=== PATIENT | female | born 1970 | race Caucasian/White ===

== ENCOUNTER 2019-01-23 21:15 | Emergency (ER) | payer SELFPAY ==
[~2019-01-23] VITALS: Ht 152.4 cm; Wt 59.0 kg
[2019-01-23 21:18] VITALS: BP 141/82
--- NOTE | 2019-01-23 21:25 | NUR ---
TO LOBBY A/W BED AMBULATORY
--- NOTE | 2019-01-23 22:36 | NUR ---
PT TAKEN TO BED 6
--- NOTE | 2019-01-23 22:48 | NUR ---
PT PRESENTS TO THE ED WITH C/O CHEST PAIN, HEADACHE, ABD PAIN AND NAUSEA X2 DAYS. PATIENT REPORTS HAVING ONE EPISODE OF DIARRHEA PRIOR TO COMING TO ER. PATIENT AOX4, VSS WITHIN NORMAL LIMITS AT THIS TIME. HX OF DM. BLOOD SUGAR 378. BED LOWERED WITH SIDE RAILS UP.
--- NOTE | 2019-01-23 22:54 | NUR ---
Dr. Orozco examining patient.
[2019-01-23] MEDS ORDERED: KETOROLAC 30 MG/ML VIAL IVP ONE (23:10)
[2019-01-23] MEDS ORDERED: ONDANSETRON 4 MG/2 ML VIAL IVP ONE (23:10)
[2019-01-23] MEDS ORDERED: NACL 0.9% 1,000 ML IV ONE (23:10)
[2019-01-23 23:30] LABS: BASOPHILS % (AUTO) 0.1 % (0.0-2.0); EOSINOPHILS # (AUTO) 0.1 K/uL (0-0.4); EOSINOPHILS % (AUTO) 0.6 % (0.0-4.0); HEMATOCRIT 44.7 % (36-48); LYMPHOCYTES # (AUTO) 0.8 K/uL (2.5-16.5); MEAN CORPUSCULAR HEMOGLOBIN 30 pg (27-31); MEAN CORPUSCULAR HGB CONC 34 g/dL (33-37); MEAN CORPUSCULAR VOLUME 88.1 fL (80-94); MONOCYTES # (AUTO) 0.4 K/uL (0.8-1.0); MONOCYTES % (AUTO) 3.2 % (1.7-9.3); NEUTROPHILS # (AUTO) 10.4 K/uL (1.8-7.7); NEUTROPHILS % (AUTO) 89.2 % (42.2-75.2); PLATELET COUNT (AUTO) 216 K/uL (140-450); RED BLOOD CELL COUNT(AUTO) 5.07 MIL/uL (4.20-5.40); RED CELL DISTRIBUTION WIDTH 13.8 % (11.6-13.7); WHITE BLOOD COUNT (AUTO) 11.7 K/uL (4.8-10.8)
[2019-01-23 23:32] LABS: APPEARANCE,URINE CLEAR (CLEAR); BILIRUBIN,URINE NEGATIVE (NEGATIVE); BLOOD, URINE NEGATIVE (NEGATIVE); COLOR,URINE YELLOW (YELLOW); LEUKOCYTE ESTERASE ,URINE NEGATIVE (NEGATIVE); NITRITE, URINE NEGATIVE (NEGATIVE); UGLUCOSE 3+ (NEGATIVE)
[2019-01-23 23:37] LABS: LYMPHOCYTES % (AUTO) 6.9 % (20.5-51.1)
[2019-01-23 23:39] LABS: ANION GAP 17.5 (8-16); CREATININE 0.6 mg/dL (0.6-1.3); POTASSIUM 3.5 mmol/L (3.5-5.1)
[2019-01-23 23:44] LABS: RBC,URINE 0-5 /HPF (0-5); WBC,URINE 0-5 /HPF (0-5)
[2019-01-23 23:45] LABS: ALBUMIN 3.9 g/dL (3.4-5.0); TOTAL BILIRUBIN 0.6 mg/dL (0.0-1.0)
[2019-01-24] MEDS ORDERED: MORPHINE SULFATE 4 MG/ML SYR IVP ONE (00:45)
--- NOTE | 2019-01-24 01:10 | NUR ---
PT TAKEN TO CT
--- NOTE | 2019-01-24 01:19 | NUR ---
PT RETURN FROM CT
[2019-01-24] MEDS ORDERED: ONDANSETRON 4 MG/2 ML VIAL IVP ONE (02:10)
--- NOTE | 2019-01-24 02:15 | NUR ---
MADE DR MOHAN AWARE OF PATIENT'S BLOOD SUGAR
[2019-01-24 04:24] VITALS: BP 130/74
--- NOTE | 2019-01-24 04:25 | NUR ---
Patient discharged with v/s stable. Written and verbal after care instructions given and explained. Patient alert, oriented and verbalized understanding of instructions. Ambulatory with steady gait. All questions addressed prior to discharge. ID band removed. Patient advised to follow up with PMD. Rx of ZOFRAN, FLAGYL, BENTYL given. Patient educated on indication of medication including possible reaction and side effects. Opportunity to ask questions provided and answered.
== END 2019-01-24 04:25 | disposition home or self-care (01) ==
LOC: MED 21:15
DX: R11.10 Vomiting, unspecified (principal); R19.7 Diarrhea, unspecified; R10.84 Generalized abdominal pain; R51 Headache; E11.9 Type 2 diabetes mellitus without complications
CPT/HCPCS: 36415; 74176; 80053; 81001; 81025; 82948; 83605; 83690; 85025; 87040; 87086; 93005; 96361; 96374; 96375; 99284; J1885; J2270; J2405; J7030

== ENCOUNTER 2019-02-21 06:52 | Emergency (ER) | payer SELFPAY ==
[~2019-02-21] VITALS: Ht 144.8 cm; Wt 56.7 kg
[2019-02-21 06:55] VITALS: BP 135/75
--- NOTE | 2019-02-21 06:55 | NUR ---
to bed # `11 ambulatory
--- NOTE | 2019-02-21 07:09 | NUR ---
DR. FOREMAN BEDSIDE EVALUATING PT
[2019-02-21] MEDS ORDERED: MORPHINE SULFATE 4 MG/ML SYR IVP ONE (07:20)
--- NOTE | 2019-02-21 07:20 | NUR ---
BIB DAUGHTER. AAO X4 C/O TOOTHACHE TO RIGHT UPPER TOOTH, SWELLING NOTED TO RIGHT SIDE OF FACE, GUM PAIN, BLURRED VISION. PERRLA BRISK 3MM, FULL CLEAR SPEECH. PT DENIES HASN'T SEEN THE DENTIST YET. STEADY GAIT. ER TO EVALUATE PT.
[2019-02-21] MEDS ORDERED: NACL 0.9% 500 ML IV ONE ×3 (07:25→08:20)
[2019-02-21 07:43] LABS: BASOPHILS % (AUTO) 0.6 % (0.0-2.0); EOSINOPHILS % (AUTO) 0.6 % (0.0-4.0); HEMATOCRIT 42.9 % (36-48); HEMOGLOBIN 14.5 g/dL (12.0-16.0); LYMPHOCYTES # (AUTO) 1.7 K/uL (2.5-16.5); LYMPHOCYTES % (AUTO) 26.1 % (20.5-51.1); MEAN CORPUSCULAR HEMOGLOBIN 30 pg (27-31); MEAN CORPUSCULAR HGB CONC 34 g/dL (33-37); MEAN CORPUSCULAR VOLUME 87.7 fL (80-94); MONOCYTES # (AUTO) 0.4 K/uL (0.8-1.0); MONOCYTES % (AUTO) 6.6 % (1.7-9.3); NEUTROPHILS # (AUTO) 4.4 K/uL (1.8-7.7); NEUTROPHILS % (AUTO) 66.1 % (42.2-75.2); PLATELET COUNT (AUTO) 212 K/uL (140-450); RED BLOOD CELL COUNT(AUTO) 4.89 MIL/uL (4.20-5.40); RED CELL DISTRIBUTION WIDTH 13.1 % (11.6-13.7); WHITE BLOOD COUNT (AUTO) 6.6 K/uL (4.8-10.8)
--- NOTE | 2019-02-21 08:15 | NUR ---
IV INFILTRATION TO RAC NOTED. IV TAKEN OUT. INITIATED IV TO LAC, PT TOLERATED WELL.
[2019-02-21 08:18] LABS: ANION GAP 18.5 (8-16); CARBON DIOXIDE 23.2 mmol/L (21-32); CREATININE 0.6 mg/dL (0.6-1.3); POTASSIUM 3.7 mmol/L (3.5-5.1)
[2019-02-21 08:23] LABS: ALBUMIN 3.8 g/dL (3.4-5.0); TOTAL BILIRUBIN 0.5 mg/dL (0.0-1.0)
--- NOTE | 2019-02-21 08:33 | NUR ---
IV INFILTRATION TO LAC. IV TAKEN OUT. IV 20 G INITIATED TO LEFT FOREARM, INTACT AND PATENT. PT TOLERATED WELL.
--- NOTE | 2019-02-21 08:44 | NUR ---
PT TAKEN TO CT VIA BED BY [employer]OD[employer] MANAGER
--- NOTE | 2019-02-21 08:45 | NUR ---
PT TAKEN TO CT VIA ER BED
--- NOTE | 2019-02-21 08:58 | NUR ---
PT RETURNED FROM CT VIA ER BED
[2019-02-21] MEDS ORDERED: KETOROLAC 15 MG/ML VIAL IVP ONE (09:30)
--- NOTE | 2019-02-21 10:00 | NUR ---
PT AAO X4, FULL CLEAR SPEECH. CONVERSATING WITH DAUGHTER APPROPRIATELY. NO SIGNS AND SYMPTOMS OF DISTRESS NOTED. VSS.
[2019-02-21] MEDS ORDERED: PENICILLIN V POTASSIUM 250 MG TAB PO ONE (10:10)
[2019-02-21] MEDS ORDERED: CLINDAMYCIN 150 MG CAP PO ONE (10:10)
[2019-02-21 10:43] VITALS: BP 142/79
--- NOTE | 2019-02-21 10:43 | NUR ---
Patient discharged with v/s stable. Written and verbal after care instructions given and explained. Patient alert, oriented and verbalized understanding of instructions. Ambulatory with steady gait. All questions addressed prior to discharge. ID band removed. Patient advised to follow up with PMD. Rx of CLINDAMYCIN HYDROCHLORIDE, PENICILLIN VK given. Patient educated on indication of medication including possible reaction and side effects. Opportunity to ask questions provided and answered.
== END 2019-02-21 10:43 | disposition home or self-care (01) ==
LOC: MED 06:52
DX: L03.211 Cellulitis of face (principal); K02.9 Dental caries, unspecified; E11.9 Type 2 diabetes mellitus without complications
CPT/HCPCS: 36415; 70491; 80053; 81025; 82948; 85025; 85651; 86140; 87040; 96374; 96375; 99284; J1885; J2270; J7030; Q9967

== ENCOUNTER 2019-02-27 21:48 | Emergency (ER) | payer SELFPAY ==
[~2019-02-27] VITALS: Ht 144.8 cm; Wt 56.7 kg
[2019-02-27 22:08] VITALS: BP 131/93
--- NOTE | 2019-02-27 22:19 | NUR ---
PT AMBULATED TO BED 11
[2019-02-27 22:25] VITALS: BP 131/93
--- NOTE | 2019-02-27 22:25 | NUR ---
PT CAME TO ER C/O OF THROAT PAIN X3 HOURS. PAIN LEVEL 9/10 AND RADIATES TO STOMACH. NO N/V/D. MED HX: DM. SAFETY MEASURES IN PLACE. WAITING FOR ERMD TO EVALUATE PT.
[2019-02-27] MEDS ORDERED: KETOROLAC 30 MG/ML VIAL IM ONE (22:50)
[2019-02-27] MEDS ORDERED: DICYCLOMINE HCL LIQUID 10 MG/5 ML UDC PO ONE (22:50)
[2019-02-27] MEDS ORDERED: LIDOCAINE VISCOUS 2% 20 ML UDC PO ONE (22:50)
[2019-02-27] MEDS ORDERED: ALUMINUM HYD/MAG/SIMETHICONE 30 ML UDC PO ONE (22:50)
--- NOTE | 2019-02-27 23:22 | NUR ---
PT AMBULATED TO BATHROOM
[2019-02-27] MEDS ORDERED: NACL 0.9% 500 ML IV ONE (23:31)
[2019-02-28 00:07] LABS: BASOPHILS % (AUTO) 0.8 % (0.0-2.0); EOSINOPHILS # (AUTO) 0.1 K/uL (0-0.4); EOSINOPHILS % (AUTO) 0.8 % (0.0-4.0); LYMPHOCYTES # (AUTO) 2.6 K/uL (2.5-16.5); LYMPHOCYTES % (AUTO) 42.5 % (20.5-51.1); MEAN CORPUSCULAR HEMOGLOBIN 29 pg (27-31); MEAN CORPUSCULAR HGB CONC 33 g/dL (33-37); MEAN CORPUSCULAR VOLUME 88.2 fL (80-94); MONOCYTES # (AUTO) 0.4 K/uL (0.8-1.0); MONOCYTES % (AUTO) 6.8 % (1.7-9.3); NEUTROPHILS # (AUTO) 2.9 K/uL (1.8-7.7); NEUTROPHILS % (AUTO) 49.1 % (42.2-75.2); PLATELET COUNT (AUTO) 249 K/uL (140-450); RED BLOOD CELL COUNT(AUTO) 4.41 MIL/uL (4.20-5.40); RED CELL DISTRIBUTION WIDTH 13.3 % (11.6-13.7)
[2019-02-28 00:24] LABS: ALBUMIN 3.6 g/dL (3.4-5.0); ANION GAP 13.4 (8-16); CARBON DIOXIDE 24.6 mmol/L (21-32); CREATININE 0.6 mg/dL (0.6-1.3); TOTAL BILIRUBIN 0.4 mg/dL (0.0-1.0)
[2019-02-28] MEDS ORDERED: NACL 0.9% 1,000 ML IV ONE (00:50)
[2019-02-28] MEDS ORDERED: INSULIN REGULAR, HUMAN 100 UNIT/ML VIAL IVP ONE (00:50)
--- NOTE | 2019-02-28 01:10 | NUR ---
PT RESTING IN BED, TALKING TO DAUGHTER. VSS. WILL CONTINUE TO MONITOR.
--- NOTE | 2019-02-28 01:48 | NUR ---
Patient discharged with v/s stable. Written and verbal after care instructions given and explained. Patient alert, oriented and verbalized understanding of instructions. Ambulatory with steady gait. All questions addressed prior to discharge. ID band removed. Patient advised to follow up with PMD. Rx of tramadol and omeperazole given. Patient educated on indication of medication including possible reaction and side effects. Opportunity to ask questions provided and answered.
== END 2019-02-28 01:48 | disposition home or self-care (01) ==
LOC: MED 21:48
DX: K29.70 Gastritis, unspecified, without bleeding (principal); E11.65 Type 2 diabetes mellitus with hyperglycemia
CPT/HCPCS: 36415; 71045; 76705; 80053; 81025; 82948; 83690; 84484; 85025; 96361; 96372; 96374; 99284; J1815; J1885; J7030; Q0092

== ENCOUNTER 2019-04-03 12:16 | Emergency (ER) | payer MEDICAID ==
[~2019-04-03] VITALS: Ht 144.8 cm; Wt 55.3 kg
[2019-04-03 12:25] VITALS: BP 134/74
[2019-04-03] MEDS ORDERED: METF850T PO (12:31)
--- NOTE | 2019-04-03 12:37 | NUR ---
Patient ambulated to bed 6 with family. RN evaluating patient at bedside.
--- NOTE | 2019-04-03 12:38 | NUR ---
Dalila mary in [facility] - 04/03/19 at 1238 by [facility] Pt taken to bed 6.
[2019-04-03] MEDS ORDERED: SODIUM CHLORIDE FLUSH 10 ML SYR IVF STA (12:44)
--- NOTE | 2019-04-03 12:45 | NUR ---
PT PRESENTS TO ED WITH C/O CHILLS AND FEVER SINCE LAST NIGHT. REPORTS NAUSEA, DIARRHEA AND LOWER BACK PAIN;+DYSURIA, +URINARY FREQUENCY, +PAINFUL/BURNING SENSATION WHEN URINATING.
[2019-04-03 13:31] LABS: BASOPHILS % (AUTO) 0.3 % (0.0-2.0); EOSINOPHILS % (AUTO) 0.1 % (0.0-4.0); HEMOGLOBIN 14.6 g/dL (12.0-16.0); LYMPHOCYTES # (AUTO) 1.1 K/uL (2.5-16.5); LYMPHOCYTES % (AUTO) 13.9 % (20.5-51.1); MEAN CORPUSCULAR HEMOGLOBIN 29 pg (27-31); MEAN CORPUSCULAR HGB CONC 33 g/dL (33-37); MEAN CORPUSCULAR VOLUME 88.2 fL (80-94); MONOCYTES # (AUTO) 0.6 K/uL (0.8-1.0); MONOCYTES % (AUTO) 7.9 % (1.7-9.3); NEUTROPHILS # (AUTO) 5.9 K/uL (1.8-7.7); NEUTROPHILS % (AUTO) 77.8 % (42.2-75.2); PLATELET COUNT (AUTO) 189 K/uL (140-450); RED BLOOD CELL COUNT(AUTO) 4.99 MIL/uL (4.20-5.40); RED CELL DISTRIBUTION WIDTH 13.5 % (11.6-13.7); WHITE BLOOD COUNT (AUTO) 7.6 K/uL (4.8-10.8)
[2019-04-03 13:42] LABS: ANION GAP 19.6 (8-16); CARBON DIOXIDE 20.3 mmol/L (21-32); CREATININE 0.6 mg/dL (0.6-1.3); POTASSIUM 3.9 mmol/L (3.5-5.1)
[2019-04-03 13:53] LABS: ALBUMIN 3.9 g/dL (3.4-5.0); TOTAL BILIRUBIN 0.5 mg/dL (0.0-1.0)
[2019-04-03] MEDS ORDERED: ONDANSETRON 4 MG/2 ML VIAL IVP ONE (14:10)
[2019-04-03] MEDS ORDERED: PANTOPRAZOLE 40 MG INJ VIAL IVP ONE (14:10)
[2019-04-03] MEDS ORDERED: NACL 0.9% 1,000 ML IV ONE (14:10)
--- NOTE | 2019-04-03 15:36 | NUR ---
pt verbalized a decreased in pain and feeling a better overall. Reports pain 3/10 at this time.
--- NOTE | 2019-04-03 16:06 | NUR ---
Leslie Monroe made aware of patient's temperature 103.2 prior to discharge. Pt will receive medications in ED prior to discharge.
[2019-04-03] MEDS ORDERED: ACETAMINOPHEN EXTRA STRENGTH 500 MG TAB PO ONE (16:25)
--- NOTE | 2019-04-03 17:10 | NUR ---
CURRENT TEMP 102.6. PER HORACIO PALAFOX TO D/C.
--- NOTE | 2019-04-03 17:15 | NUR ---
IV removed, catheter intact and site benign. Applied folded 4x4 gauze and tape to stop bleeding.
[2019-04-03 17:18] VITALS: BP 118/61
== END 2019-04-03 17:18 | disposition home or self-care (01) ==
LOC: MED 12:16
DX: A08.4 Viral intestinal infection, unspecified (principal); E11.9 Type 2 diabetes mellitus without complications; E05.90 Thyrotoxicosis, unspecified without thyrotoxic crisis or storm; Z98.890 Other specified postprocedural states; Z79.84 Long term (current) use of oral hypoglycemic drugs
CPT/HCPCS: 36415; 80053; 81002; 81025; 82948; 85025; 96361; 96374; 96375; 99283; C9113; J2405; J7030

== ENCOUNTER 2020-04-11 18:41 | Emergency (ER) | payer MEDICAID ==
[~2020-04-11] VITALS: Ht 144.8 cm; Wt 53.5 kg
[~2020-04-11 18:41] MED LIST: METF850T PO
[2020-04-11 18:46] VITALS: BP 161/94
--- NOTE | 2020-04-11 18:56 | NUR ---
49 Y/O FEMALE C/O CHEST PAIN/EPIGASTRIC PAIN/BACK PAIN RADIATING TO BACK THAT BEGAN ONE MONTH AGO. PT HAVING DIARRHEA FOR THE LAST 2 DAYS. PAIN IS 10/10, BURNING AND SHARP IN CHARACTER. PT HAS BEEN TO [facility] THIS MONTH AND WAS DX WITH GERD, BUT MEDICATIONS DID NOT HELP. PT STATES PAIN IS WORSE ON LEFT SIDE. DENIES ANY SOB/RESP EVEN AND UNLABORED. DENIES ANY COUGH/FEVER PMH: DM, HTN NKA
[2020-04-11] MEDS ORDERED: NACL 0.9% 1,000 ML IV ONE (19:10)
[2020-04-11] MEDS ORDERED: ALUMINUM HYD/MAG/SIMETHICONE 30 ML UDC PO ONE (19:10)
[2020-04-11] MEDS ORDERED: PANTOPRAZOLE 40 MG INJ VIAL IVP ONE (19:10)
[2020-04-11] MEDS ORDERED: LIDOCAINE VISCOUS 2% 20 ML UDC PO ONE (19:10)
[2020-04-11] MEDS ORDERED: DICYCLOMINE HCL LIQUID 10 MG/5 ML UDC PO ONE (19:10)
[2020-04-11] MEDS ORDERED: KETOROLAC 30 MG/ML VIAL IVP ONE (19:10)
--- NOTE | 2020-04-11 19:35 | NUR ---
US at bedside.
[2020-04-11 19:41] LABS: BASOPHILS % (AUTO) 0.6 % (0.0-2.0); EOSINOPHILS % (AUTO) 0.8 % (0.0-4.0); HEMATOCRIT 38.3 % (36-48); HEMOGLOBIN 12.7 g/dL (12.0-16.0); LYMPHOCYTES # (AUTO) 1.9 K/uL (2.5-16.5); LYMPHOCYTES % (AUTO) 34.9 % (20.5-51.1); MEAN CORPUSCULAR HEMOGLOBIN 29 pg (27-31); MEAN CORPUSCULAR HGB CONC 33 g/dL (33-37); MEAN CORPUSCULAR VOLUME 88.1 fL (80-94); MONOCYTES # (AUTO) 0.5 K/uL (0.8-1.0); MONOCYTES % (AUTO) 9.7 % (1.7-9.3); PLATELET COUNT (AUTO) 209 K/uL (140-450); RED BLOOD CELL COUNT(AUTO) 4.34 MIL/uL (4.20-5.40); RED CELL DISTRIBUTION WIDTH 13.4 % (11.6-13.7); WHITE BLOOD COUNT (AUTO) 5.5 K/uL (4.8-10.8)
[2020-04-11 20:00] LABS: ALBUMIN 3.6 g/dL (3.4-5.0); ANION GAP 14.4 (8-16); CARBON DIOXIDE 25.7 mmol/L (21-32); CREATININE 0.7 mg/dL (0.6-1.3); POTASSIUM 4.1 mmol/L (3.5-5.1); TOTAL BILIRUBIN 0.3 mg/dL (0.0-1.0)
[2020-04-11] MEDS ORDERED: INSULIN REGULAR, HUMAN 100 UNIT/ML VIAL IVP ONE (20:05)
--- NOTE | 2020-04-11 20:26 | NUR ---
ACCUCHECK--291 PT ADMINISTERED 6 UNITS OF HUMULIN R PER ERMD ORDER.
--- NOTE | 2020-04-11 20:39 | NUR ---
PT RESTING QUIETLY IN BED. R/R EQUAL, AND UNLABORED. VSS. DAUGHTER IS AT BED SIDE. SIDE RAIL X1, BED IN LOW POSIITON, WILL CONTINUE TO MONITOR.
--- NOTE | 2020-04-11 21:43 | NUR ---
ACCUCHECK RECHECKED BG 244. ERMD MADE AWARE. WILL CONTINUE TO MONITOR.
[2020-04-11 22:11] VITALS: BP 161/94
--- NOTE | 2020-04-11 22:11 | NUR ---
Patient discharged with v/s stable. Written and verbal after care instructions given and explained. Patient alert, oriented and verbalized understanding of instructions. Ambulatory with steady gait. All questions addressed prior to discharge. ID band removed. Patient advised to follow up with PMD. Rx of PROTONIX, CARAFATE given. Patient educated on indication of medication including possible reaction and side effects. Opportunity to ask questions provided and answered.
== END 2020-04-11 22:11 | disposition home or self-care (01) ==
LOC: MED 18:41
DX: K29.70 Gastritis, unspecified, without bleeding (principal); E11.9 Type 2 diabetes mellitus without complications; I10 Essential (primary) hypertension; E05.90 Thyrotoxicosis, unspecified without thyrotoxic crisis or storm; F03.90 Unspecified dementia, unspecified severity, without behavioral disturbance, psychotic disturbance, mood disturbance, and anxiety; Z79.84 Long term (current) use of oral hypoglycemic drugs; Z98.890 Other specified postprocedural states
CPT/HCPCS: 36415; 71045; 76705; 80053; 83690; 84484; 85025; 93005; 96361; 96374; 96375; 99285; C9113; J1815; J1885; J7030; Q0092

== ENCOUNTER 2020-06-27 17:05 | Emergency (ER) | payer MEDICAID ==
[~2020-06-27] VITALS: Ht 147.3 cm; Wt 68.0 kg
[2020-06-27 17:19] VITALS: BP 167/89
--- NOTE | 2020-06-27 17:19 | NUR ---
PATIENT PRESENTS TO ED WITH C/O RIGHT UPPER QUADRANT PAIN, RADIATING TO RIGHT BACK X 4 DAYS . PT STATES HAS BEEN TAKING TRAMADOL FROM [place] . DENIES V/D; SKIN IS PINK/WARM/DRY; AAOX4 WITH EVEN AND STEADY GAIT; LUNGS CLEAR BL; HR EVEN AND REGULAR; PT DENIES ANY FEVER, CP, SOB, OR COUGH AT THIS TIME; PATIENT STATES PAIN OF 10/10 AT THIS TIME; VSS; PATIENT POSITIONED FOR COMFORT; HOB ELEVATED; BEDRAILS UP X2; BED DOWN. ER MD MADE AWARE OF PT STATUS.
--- NOTE | 2020-06-27 17:25 | NUR ---
BG = 504. DR RINALDI AWARE
[2020-06-27] MEDS ORDERED: MORPHINE SULFATE 4 MG/ML SYR IVP ONE ×2 (17:45→18:50)
[2020-06-27] MEDS ORDERED: ONDANSETRON 4 MG/2 ML VIAL IVP ONE (17:45)
[2020-06-27] MEDS ORDERED: NACL 0.9% 1,000 ML IV ONE (17:45)
--- NOTE | 2020-06-27 17:50 | NUR ---
SL ESTABLISHED LABS DRAWN
[2020-06-27 18:13] LABS: BASOPHILS % (AUTO) 0.9 % (0.0-2.0); EOSINOPHILS % (AUTO) 0.8 % (0.0-4.0); HEMOGLOBIN 13.9 g/dL (12.0-16.0); LYMPHOCYTES # (AUTO) 1.7 K/uL (2.5-16.5); LYMPHOCYTES % (AUTO) 36.4 % (20.5-51.1); MEAN CORPUSCULAR HEMOGLOBIN 30 pg (27-31); MEAN CORPUSCULAR HGB CONC 33 g/dL (33-37); MEAN CORPUSCULAR VOLUME 88.9 fL (80-94); MONOCYTES # (AUTO) 0.3 K/uL (0.8-1.0); MONOCYTES % (AUTO) 7.3 % (1.7-9.3); NEUTROPHILS # (AUTO) 2.6 K/uL (1.8-7.7); NEUTROPHILS % (AUTO) 54.6 % (42.2-75.2); PLATELET COUNT (AUTO) 254 K/uL (140-450); RED BLOOD CELL COUNT(AUTO) 4.72 MIL/uL (4.20-5.40); RED CELL DISTRIBUTION WIDTH 13.3 % (11.6-13.7); WHITE BLOOD COUNT (AUTO) 4.8 K/uL (4.8-10.8)
[2020-06-27 18:24] LABS: ALBUMIN 3.8 g/dL (3.4-5.0); ANION GAP 14.5 (8-16); CARBON DIOXIDE 25.6 mmol/L (21-32); CREATININE 0.7 mg/dL (0.6-1.3); POTASSIUM 4.1 mmol/L (3.5-5.1); TOTAL BILIRUBIN 0.2 mg/dL (0.0-1.0)
--- NOTE | 2020-06-27 18:28 | NUR ---
CRITICAL VALUE RECEIVED. BG = 544
--- NOTE | 2020-06-27 19:00 | NUR ---
PREPARING FOR DISCHARGE. PT STATES PAIN REMAINS 10/10. PT IS TEARFUL WITH MUCH FACIAL GRIMACING NOTED. DR. Hernandez NOTIFIED. ORDER RECEIVED.
--- NOTE | 2020-06-27 19:16 | NUR ---
RECEIVED REPORT FROM IDA JOE FOR CONTINUATION OF CARE.
--- NOTE | 2020-06-27 19:30 | NUR ---
rE-CHECKED BLOOD GLUCOSE LEVEL. ERMD MADE AWARE OF STATUS AND CURRENT VS. ERMD STATES READY FOR DISCHARGE
[2020-06-27 19:45] VITALS: BP 154/91
--- NOTE | 2020-06-27 19:45 | NUR ---
Patient discharged with v/s stable. Written and verbal after care instructions given and explained. Patient alert, oriented and verbalized understanding of instructions. Ambulatory with steady gait. All questions addressed prior to discharge. ID band removed. Patient advised to follow up with PMD. Rx of ZOFRAN, PRILOSEC, & NORCO given. Patient educated on indication of medication including possible reaction and side effects. Opportunity to ask questions provided and answered.
== END 2020-06-27 19:45 | disposition home or self-care (01) ==
LOC: MED 17:05
DX: R10.11 Right upper quadrant pain (principal); R11.0 Nausea; E11.9 Type 2 diabetes mellitus without complications; E05.90 Thyrotoxicosis, unspecified without thyrotoxic crisis or storm; I10 Essential (primary) hypertension; Z98.890 Other specified postprocedural states; Z79.899 Other long term (current) drug therapy
CPT/HCPCS: 36415; 80053; 81002; 83690; 85025; 96361; 96374; 96375; 96376; 99284; J2270; J2405; J7030

== ENCOUNTER 2020-09-11 20:57 | Emergency (ER) | payer MEDICAID ==
[~2020-09-11] VITALS: Ht 137.2 cm; Wt 54.4 kg
[2020-09-11 21:00] VITALS: BP 146/80
[2020-09-11] MEDS ORDERED: LIDOCAINE 2% 1000 MG/50 ML VIAL INJ ONE (21:35)
[2020-09-11] MEDS ORDERED: KETOROLAC 60 MG/2 ML VIAL IM ONE (22:15)
[2020-09-11 22:49] VITALS: BP 127/80
== END 2020-09-11 22:49 | disposition home or self-care (01) ==
LOC: MED 20:57
DX: N75.0 Cyst of Bartholin's gland (principal); R07.81 Pleurodynia; E11.9 Type 2 diabetes mellitus without complications; I10 Essential (primary) hypertension; E07.9 Disorder of thyroid, unspecified; Z98.890 Other specified postprocedural states; Z79.899 Other long term (current) drug therapy
CPT/HCPCS: 56420; 96372; 99284; J1885; J2001

== ENCOUNTER 2020-11-26 14:36 | Emergency (ER) | payer MEDICAID ==
[~2020-11-26] VITALS: Ht 152.4 cm; Wt 59.9 kg
[2020-11-26 14:42] VITALS: BP 150/71
[2020-11-26 14:57] VITALS: BP_SYST 103; BP_SYST 150; BP_DIAS 54; BP_DIAS 71
[2020-11-26 15:38] LABS: BASOPHILS % (AUTO) 0.4 % (0.0-2.0); EOSINOPHILS % (AUTO) 0.8 % (0.0-4.0); HEMATOCRIT 41.4 % (36-48); HEMOGLOBIN 13.9 g/dL (12.0-16.0); LYMPHOCYTES # (AUTO) 2.2 K/uL (2.5-16.5); LYMPHOCYTES % (AUTO) 35.9 % (20.5-51.1); MEAN CORPUSCULAR HEMOGLOBIN 29 pg (27-31); MEAN CORPUSCULAR HGB CONC 34 g/dL (33-37); MEAN CORPUSCULAR VOLUME 87.6 fL (80-94); MONOCYTES # (AUTO) 0.5 K/uL (0.8-1.0); MONOCYTES % (AUTO) 7.5 % (1.7-9.3); NEUTROPHILS # (AUTO) 3.4 K/uL (1.8-7.7); NEUTROPHILS % (AUTO) 55.4 % (42.2-75.2); PLATELET COUNT (AUTO) 232 K/uL (140-450); RED BLOOD CELL COUNT(AUTO) 4.72 MIL/uL (4.20-5.40); RED CELL DISTRIBUTION WIDTH 13.5 % (11.6-13.7); WHITE BLOOD COUNT (AUTO) 6.2 K/uL (4.8-10.8)
--- NOTE | 2020-11-26 15:51 | NUR ---
PATIENT AMBULATED TO BED 12
--- NOTE | 2020-11-26 16:00 | NUR ---
50 YO F BIB SELF FOR C/C OF 810 MID EPIGASTRIC PAIN X2 WEEKS, DENIES N/V/D. PT STATES THAT HER BLOOD SUGARS HAVE ALSO BEEN IN THE 500S DESPITE TAKING ALL PRESCRIBED DM2 RX. PT PLACED ON PRECISION INSTRUMENT MAKER/PULSE OX.
[2020-11-26 16:01] LABS: ALBUMIN 3.8 g/dL (3.4-5.0); ANION GAP 12.5 (8-16); CARBON DIOXIDE 26.5 mmol/L (21-32); CREATININE 0.9 mg/dL (0.6-1.3); TOTAL BILIRUBIN 0.3 mg/dL (0.0-1.0)
[2020-11-26] MEDS ORDERED: NACL 0.9% 1,000 ML IV ONE (16:05)
[2020-11-26] MEDS ORDERED: ONDANSETRON 4 MG/2 ML VIAL IVP ONE (16:05)
[2020-11-26] MEDS ORDERED: MORPHINE SULFATE 4 MG/ML SYR IVP ONE (16:05)
--- NOTE | 2020-11-26 16:37 | NUR ---
US AT BEDSIDE
[2020-11-26 16:49] LABS: APPEARANCE,URINE CLEAR (CLEAR); BILIRUBIN,URINE NEGATIVE (NEGATIVE); BLOOD, URINE NEGATIVE (NEGATIVE); COLOR,URINE YELLOW (YELLOW); LEUKOCYTE ESTERASE ,URINE NEGATIVE (NEGATIVE); NITRITE, URINE NEGATIVE (NEGATIVE); UGLUCOSE 3+ (NEGATIVE)
[2020-11-26] MEDS ORDERED: INSULIN REGULAR, HUMAN 100 UNIT/ML VIAL IVP ONE (17:30)
[2020-11-26] MEDS ORDERED: BLOOD GLUCOSE MONITORING 1 DEV DEV FS ONE (18:25)
[2020-11-26] MEDS ORDERED: ACET-8386 PO (18:47)
[2020-11-26] MEDS ORDERED: ONDA4TAB PO (18:47)
[2020-11-26] MEDS ORDERED: MIRABULK PO (18:47)
[2020-11-26 19:04] VITALS: BP 132/63
--- NOTE | 2020-11-26 19:04 | NUR ---
Patient discharged with v/s stable. Written and verbal after care instructions given and explained. Patient alert, oriented and verbalized understanding of instructions. Ambulatory with steady gait. All questions addressed prior to discharge. ID band removed. Patient advised to follow up with PMD. Rx of ZOFRAN, NORCO, MIRALAX given. Patient educated on indication of medication including possible reaction and side effects. Opportunity to ask questions provided and answered.
== END 2020-11-26 19:04 | disposition home or self-care (01) ==
LOC: MED 14:36
DX: R10.13 Epigastric pain (principal); E11.65 Type 2 diabetes mellitus with hyperglycemia; K59.00 Constipation, unspecified; I10 Essential (primary) hypertension; E07.9 Disorder of thyroid, unspecified; Z79.899 Other long term (current) drug therapy
CPT/HCPCS: 36415; 74021; 76705; 80053; 81003; 83690; 84484; 85025; 96361; 96374; 96375; 99285; J1815; J2270; J2405; J7030

== ENCOUNTER 2022-01-16 18:16 | Emergency (ER) | payer MEDICAID ==
[~2022-01-16] VITALS: Ht 144.8 cm; Wt 59.4 kg
[~2022-01-16 18:16] MED LIST changes: +ACET-8386 PO; +METF-713 PO; -METF850T PO; +MIRABULK PO; +ONDA4TAB PO
[2022-01-16 18:40] VITALS: BP 164/83
[2022-01-16] MEDS ORDERED: METOCLOPRAMIDE 10 MG/2 ML INJ VIAL IVP ONE (18:45)
[2022-01-16] MEDS ORDERED: NACL 0.9% 2,000 ML IV ONE (18:45)
[2022-01-16 19:00] LABS: BASOPHILS % (AUTO) 0.6 % (0.0-2.0); EOSINOPHILS % (AUTO) 0.4 % (0.0-4.0); LYMPHOCYTES # (AUTO) 2.4 K/uL (2.5-16.5); LYMPHOCYTES % (AUTO) 37.2 % (20.5-51.1); MEAN CORPUSCULAR HEMOGLOBIN 29 pg (27-31); MEAN CORPUSCULAR HGB CONC 33 g/dL (33-37); MEAN CORPUSCULAR VOLUME 85.8 fL (80-94); MONOCYTES # (AUTO) 0.4 K/uL (0.8-1.0); MONOCYTES % (AUTO) 6.3 % (1.7-9.3); NEUTROPHILS # (AUTO) 3.6 K/uL (1.8-7.7); NEUTROPHILS % (AUTO) 55.5 % (42.2-75.2); PLATELET COUNT (AUTO) 248 K/uL (140-450); RED CELL DISTRIBUTION WIDTH 14.1 % (11.6-13.7); WHITE BLOOD COUNT (AUTO) 6.4 K/uL (4.8-10.8)
[2022-01-16 19:21] LABS: ALBUMIN 3.7 g/dL (3.4-5.0); ANION GAP 10.5 (8-16); ASPARTATE AMINOTRANSFERASE 11 U/L (15-37); CARBON DIOXIDE 28.1 mmol/L (21-32); CHLORIDE 98 mmol/L (98-107); CREATININE 0.6 mg/dL (0.6-1.3); GFR ARICAN-AMERICAN 134 mL/min (>90); LIPASE 143 U/L (73-393); POTASSIUM 3.6 mmol/L (3.5-5.1); SODIUM SERUM 133 mmol/L (136-145); THYROID STIMULATING HORMONE 1.72 uIU/mL (0.34-3.74); TOTAL BILIRUBIN 0.3 mg/dL (0.0-1.0); UREA NITROGEN, BLOOD 8 mg/dL (7-18)
[2022-01-16 19:27] LABS: GLUCOSE 450 mg/dL (74-106)
[2022-01-16] MEDS ORDERED: KETOROLAC 15 MG/ML VIAL IVP ONE (21:05)
[2022-01-16] MEDS ORDERED: METO-486 PO (22:09)
[2022-01-16] MEDS ORDERED: NAPR-54 PO (22:09)
[2022-01-16 22:35] LABS: APPEARANCE,URINE CLEAR (CLEAR); BILIRUBIN,URINE NEGATIVE (NEGATIVE); BLOOD, URINE NEGATIVE (NEGATIVE); COLOR,URINE YELLOW (YELLOW); LEUKOCYTE ESTERASE ,URINE NEGATIVE (NEGATIVE); NITRITE, URINE NEGATIVE (NEGATIVE); PH,URINE 7.5 (5.0-9.0); UGLUCOSE 3+ (NEGATIVE)
[2022-01-16 23:55] VITALS: BP 132/62
== END 2022-01-16 23:54 | disposition home or self-care (01) ==
LOC: MED 18:16
DX: E11.65 Type 2 diabetes mellitus with hyperglycemia (principal); R51.9 Headache, unspecified; E03.9 Hypothyroidism, unspecified; Z98.890 Other specified postprocedural states; Z79.1 Long term (current) use of non-steroidal anti-inflammatories (NSAID); Z79.899 Other long term (current) drug therapy; Z79.891 Long term (current) use of opiate analgesic
CPT/HCPCS: 36415; 70450; 70496; 70498; 71045; 80053; 81003; 82948; 83690; 83735; 84443; 84484; 85025; 93005; 96361; 96374; 96375; 99285; J1885; J2765; J7030; Q0092; Q9967

== ENCOUNTER 2024-02-27 19:01 | Emergency (ER) | payer MEDICAID, OTHER ==
[~2024-02-27] VITALS: Ht 134.6 cm; Wt 59.0 kg
[~2024-02-27 19:01] MED LIST changes: -ACET-8386 PO; +ACET-8905 PO; +METO-486 PO; +NAPR-337 PO
[2024-02-27 19:36] VITALS: BP 149/70; PULSE 68; RESP 16; TEMP 97.4; O2SAT 99
[2024-02-27] MEDS ORDERED: OLOP5DRO13 OP (20:04)
[2024-02-27] MEDS ORDERED: FLONAS NS (20:04)
[2024-02-27] MEDS ORDERED: CETI-366 PO (20:04)
[2024-02-27 20:27] VITALS: BP 149/70; PULSE 68; RESP 16; TEMP 36.33624; O2SAT 99
== END 2024-02-27 20:27 | disposition home or self-care (01) ==
LOC: MED 19:01
DX: J30.9 Allergic rhinitis, unspecified (principal); H10.13 Acute atopic conjunctivitis, bilateral; E11.9 Type 2 diabetes mellitus without complications; I10 Essential (primary) hypertension; E03.9 Hypothyroidism, unspecified; Z79.899 Other long term (current) drug therapy
CPT/HCPCS: 99282